=== PATIENT | male | born 1980 | race Caucasian/White ===

== ENCOUNTER → 2017-01-20 | Outpatient (CLI) | payer OTHER ==
--- NOTE | 2017-01-20 09:53 | RAD ---
Indication: Left ankle pain and swelling. Time of exam 0946 hours. 3 views of the left ankle were obtained. The alignment is normal. Ankle mortise is well-maintained. The talar dome is smooth. No fracture or dislocation is identified. There is a small plantar calcaneal spur. Impression: No acute bony abnormality is detected.
== END | disposition home or self-care (01) ==
LOC: DXRADRC 09:34
PROVIDERS: ATTEND Physician Assistant
DX: M77.32 Calcaneal spur, left foot (principal); M25.472 Effusion, left ankle; M24.872 Other specific joint derangements of left ankle, not elsewhere classified
CPT/HCPCS: 73610

== ENCOUNTER → 2020-03-13 | Outpatient (CLI) | payer OTHER ==
--- NOTE | 2020-03-13 16:55 | RAD ---
Study: CR WRIST 2V RIGHT Indication: Persistent right wrist pain after an injury one month prior. Comparison: None. Findings: No acute or healing fracture. A tiny focus of mineralization only seen on the lateral view projecting along the volar margin of the radial articular surface is unlikely related to trauma. Carpal alignment is maintained. Potential mild positive ulnar variance and faint subchondral cystic change along the ulnar margin of the proximal lunate (see orosco image. Impression: 1. No acute or healing fracture. 2. There appears to be mild ulnar positive variance and the suggestion of faint subchondral cystic change at the proximal/ulnar margin of the lunate. Recommend correlation for any symptoms of ulnar impaction syndrome. Electronically signed by: PRAVEENA MYLES MD (03/13/2020 4:52 PM) [id number]
== END | disposition home or self-care (01) ==
LOC: RAD 15:20
PROVIDERS: ATTEND Physician Assistant
DX: M25.831 Other specified joint disorders, right wrist (principal); M25.531 Pain in right wrist
CPT/HCPCS: 73100